=== PATIENT | male | born 1970 | race Caucasian/White ===

== ENCOUNTER 2017-10-13 14:50 | Emergency (ER) | payer OTHER ==
[2017-10-13] MEDS ORDERED: TETANUS & DIPHTHERIA TOX,ADULT 0.5 ML VIAL ONE (15:37)
--- NOTE | 2017-10-13 16:14 | EDPHYS ---
Physician Documentation [facility] Name: Sylvester Willard Age: 46 yrs Sex: Male : 1970 Arrival Date: 10/13/2017 Time: 14:50 Bed 30 Private MD: ED Physician Earle Shore HPI: 10/13 15:33 This 46 yrs old Male presents to ER via Wheelchair with complaints of jmm Laceration To Leg. 15:33 The patient has a laceration related to: doing crafts, from a sharp metal object. jmm 15:33 The laceration(s) is(are) located on the right vigil. Onset: The symptoms/episode jmm began/occurred acutely, just prior to arrival. Patient states he was making a metal basket and the metal sprang on him and hit his right lower leg. Patient denies other injury. Historical: - Allergies: 14:59 Codeine; aj1 - Home Meds: 14:59 None [Active]; aj1 - PMHx: 14:59 None; aj1 - PSHx: 14:59 Cholecystectomy; aj1 - Immunization history:: Flu vaccine is up to date. - Social history:: Smoking status: Patient/guardian denies using tobacco. - Ebola Screening: : Patient denies travel to an Ebola-affected area in the 21 days before illness onset. ROS: 15:33 Constitutional: Negative for fever, chills, and weight loss. jmm 15:33 MS/extremity: Positive for injury or acute deformity, laceration. 15:33 Skin: Positive for laceration(s). 15:33 Neuro: Negative for weakness. 15:33 All other systems are negative. Exam: 15:33 Head/Face: atraumatic. Chest/axilla: Normal chest wall appearance and motion. jmm Cardiovascular: Regular rate and rhythm. No edema appreciated Respiratory: Normal respirations, no respiratory distress appreciated Abdomen/GI: Non distended, soft Back: Normal ROM 15:33 Constitutional: The patient appears in no acute distress, alert, awake. 15:33 Musculoskeletal/extremity: full dorsalis pedis pulse appreciated, compartments are soft, NVI. 15:33 Skin: 4 cm laceration noted ot the right lower leg. 15:33 Neuro: Orientation: is normal, Mentation: is normal, Memory: is normal. Vital Signs: 14:59 BP 131 / 86; Pulse 74; Resp 18; Temp 97.6(O); Pulse Ox 97% on R/A; Weight 77.11 kg (R); aj1 Height 5 ft. 10 in. (177.80 cm); Pain 2/10; 14:59 Body Mass Index 24.39 (77.11 kg, 177.80 cm) aj1 Laceration: 15:50 Wound Repair of 4cm ( 1.6in ) subcutaneous laceration to right vigil. Distal jmm neuro/vascular/tendon intact. Anesthesia: Local anesthetic administered with 5 mls of 1% lidocaine w/ Epi. Wound prep: Simple cleansing with betadine by mn, Copious irrigation. Skin closed with 6 4-0 Prolene using simple sutures and sterile technique. Patient tolerated well. MDM: 15:11 Patient medically screened. ngoc 15:56 Data reviewed: vital signs, nurses notes. Counseling: I had a detailed discussion with babatunde the patient and/or guardian regarding: the historical points, exam findings, and any diagnostic results supporting the discharge/admit diagnosis. Administered Medications: 16:02 Drug: Tetanus-Diphtheria Toxoid Adult 0.5 ml {Community Aide: [employer]. Exp: mg2 12/07/2019. Lot #: [id number]. } Route: IM; Site: right deltoid; 16:05 Follow up: Response: No adverse reaction; Medication administered at discharge. mg2 Disposition: 10/13/17 16:14 Discharged to Home. Impression: Laceration of the Right Lower Leg. - Condition is Stable. - Discharge Instructions: Laceration Care, Adult. - Medication Reconciliation Form, Thank You Letter, Antibiotic Education, Prescription Opioid Use form. - Follow up: Private Physician; When: 7 - 10 days; Reason: Recheck today's complaints, Continuance of care, Staple/Suture removal, Re-evaluation by your physician. Addendum: 10/16/2017 10:21 Co-signature as Attending Physician, Earle Shore MD I agree with the assessment and c jackson plan of care. Signatures: Nilda An RN RN aj1 Earle Shore MD MD cha Mickail, Joel, PA PA Mihir Malagon RN RN mg2 Corrections: (The following items were deleted from the chart) 10/13 16:25 16:14 10/13/2017 16:14 Discharged to Home. Impression: Laceration of the Right Lower mg2 Leg. Condition is Stable. Forms are Medication Reconciliation Form, Thank You Letter, Antibiotic Education, Prescription Opioid Use. Follow up: Private Physician; When: 7 - 10 days; Reason: Recheck today's complaints, Continuance of care, Staple/Suture removal, Re-evaluation by your physician. babatunde
--- NOTE | 2017-10-13 16:14 | ER ---
Nurse's Notes [facility] Name: Sylvester Willard Age: 46 yrs Sex: Male : 1970 Arrival Date: 10/13/2017 Time: 14:50 Bed 30 Private MD: Diagnosis: Laceration of the Right Lower Leg Presentation: 10/13 14:55 Presenting complaint: Patient states: "I was working on a piece of metal and I was aj1 trying to bend it into a [place] and it popped up and hit me in the leg. Laceration noted to right lower leg, bleeding controlled. Transition of care: patient was not received from another setting of care. Complicating Factors: There are no complicating factors for this patient. Onset of symptoms was October 13, 2017. Risk Assessment: Do you want to hurt yourself or someone else? Patient reports no desire to harm self or others. Initial Sepsis Screen: Does the patient meet any 2 criteria? No. Patient's initial sepsis screen is negative. Does the patient have a suspected source of infection? No. Patient's initial sepsis screen is negative. Care prior to arrival: None. 14:55 Method Of Arrival: Wheelchair aj1 14:55 Acuity: KANWAL 4 aj1 Triage Assessment: 14:59 General: Appears in no apparent distress. comfortable, Behavior is calm, cooperative, aj1 appropriate for age. Pain: Complains of pain in right vigil Pain does not radiate. Pain currently is 2 out of 10 on a pain scale. Neuro: Level of Consciousness is awake, alert, obeys commands. Cardiovascular: Patient's skin is warm and dry. Respiratory: Airway is patent Respiratory effort is even, unlabored, Respiratory pattern is regular, symmetrical. Injury Description: Laceration sustained to right vigil is not bleeding. Historical: - Allergies: 14:59 Codeine; aj1 - Home Meds: 14:59 None [Active]; aj1 - PMHx: 14:59 None; aj1 - PSHx: 14:59 Cholecystectomy; aj1 - Immunization history:: Flu vaccine is up to date. - Social history:: Smoking status: Patient/guardian denies using tobacco. - Ebola Screening: : Patient denies travel to an Ebola-affected area in the 21 days before illness onset. Screenin:39 Abuse screen: Denies threats or abuse. Denies injuries from another. Nutritional mg2 screening: No deficits noted. Tuberculosis screening: No symptoms or risk factors identified. Fall Risk None identified. Assessment: 15:39 General: Appears in no apparent distress. comfortable, Behavior is calm, cooperative. mg2 Pain: Complains of pain in right leg and right vigil Pain does not radiate. Pain currently is 5 out of 10 on a pain scale. Quality of pain is described as aching, Pain began suddenly, 1 hour ago. Is intermittent. Neuro: Level of Consciousness is awake, alert, obeys commands, Oriented to person, place, time, situation. Cardiovascular: Capillary refill < 3 seconds Patient's skin is warm and dry. Respiratory: Airway is patent Respiratory effort is even, unlabored, Respiratory pattern is regular, symmetrical. GI: No signs and/or symptoms were reported involving the gastrointestinal system. : No signs and/or symptoms were reported regarding the genitourinary system. EENT: No signs and/or symptoms were reported regarding the EENT system. Derm: Wound noted right vigil Wound is newly lacerated. Musculoskeletal: Circulation, motion, and sensation intact. Injury Description: Laceration sustained to right vigil is bleeding controlled was sustained 1-2 hours ago. is bleeding a small amount. Vital Signs: 14:59 BP 131 / 86; Pulse 74; Resp 18; Temp 97.6(O); Pulse Ox 97% on R/A; Weight 77.11 kg (R); aj1 Height 5 ft. 10 in. (177.80 cm); Pain 2/10; 14:59 Body Mass Index 24.39 (77.11 kg, 177.80 cm) aj1 ED Course: 14:50 Patient arrived in ED. as 14:59 Triage completed. aj1 14:59 Arm band placed on Patient placed in waiting room, Patient notified of wait time. aj1 15:10 Jaquan Gray PA is PHCP. [facility] 15:10 Earle Shore MD is Attending Physician. babatunde 15:12 Mihir Grajeda, SHARON is Primary Nurse. mg2 15:41 Patient has correct armband on for positive identification. Side rails up X 1. Door mg2 closed. 16:03 No provider procedures requiring assistance completed. Patient did not have IV access mg2 during this emergency room visit. Wound care: to laceration located on right vigil was cleaned with Betadine, dressed with Neosporin, 2X2, sutured with prolene Patient tolerated well. Administered Medications: 16:02 Drug: Tetanus-Diphtheria Toxoid Adult 0.5 ml {Associate Director Of Nursing: [employer]. Exp: mg2 12/07/2019. Lot #: [id number]. } Route: IM; Site: right deltoid; 16:05 Follow up: Response: No adverse reaction; Medication administered at discharge. mg2 Outcome: 16:14 Discharge ordered by . babatunde 16:25 Discharged to home ambulatory, with family. mg2 16:25 Condition: good 16:25 Discharge instructions given to patient, family, Instructed on discharge instructions, follow up and referral plans. Demonstrated understanding of instructions, follow-up care. 16:25 Patient left the ED. mg2 Signatures: Nilda An, RN RN aj1 Jaquan Gray PA PA jmm Martinez, Amelia as Gardose, Michele, RN RN mg2
== END 2017-10-13 16:25 | disposition home or self-care (01) ==
LOC: ER 14:50
PROC: 0JQN0ZZ Repair Right Lower Leg Subcutaneous Tissue and Fascia, Open Approach (ICD-10-PCS; principal; 2017-10-13)
DX: S81.811A Laceration without foreign body, right lower leg, initial encounter (principal); W26.8XXA Contact with other sharp object(s), not elsewhere classified, initial encounter; Y93.89 Activity, other specified; Y92.015 Private garage of single-family (private) house as the place of occurrence of the external cause
CPT/HCPCS: 90714; 99283